=== PATIENT | male | born 2000 | race Caucasian/White ===

== ENCOUNTER 2020-03-22 09:25 | Emergency (ER) | payer BC ==
[2020-03-22] MEDS ORDERED: Cephalexin 500 MG Cap PO ONE (10:04)
--- NOTE | 2020-03-22 10:10 | EDM.PDOC ---
ED HPI GENERAL MEDICAL PROBLEM - General Chief Complaint: Skin Complaint Stated Complaint: CYST ON CHIN Time Seen by Provider: 03/22/20 10:00 Source of Information: Reports: Patient History Limitations: Reports: No Limitations - History of Present Illness INITIAL COMMENTS - FREE TEXT/NARRATIVE: This 19 year old male is admitted to the ED with a chief complaint of a cystic type lesion on his right jaw area for the past two weeks. He states that he has been applying heat to the area for the last 4 days and that it is almost coming to a head. He states that he had a similar one on the left cheek but it drained and healed. He denies any other symptoms. No fever or chills. No ENT complaints. Right Cheek Pain Score (Numeric/FACES): 6 - Related Data Allergies Allergy/AdvReac Type Severity Reaction Status Date / Time No Known Allergies Allergy Verified 03/22/20 09:34 Home Meds: Home Meds Divalproex Sodium [Depakote] 1 tab PO BID 03/22/20 [History] cephALEXin [Keflex] 500 mg PO BID 5 Days #10 capsule 03/22/20 [Rx] Past Medical History - Past Health History Medical/Surgical History: Denies Medical/Surgical History - Infectious Disease History Infectious Disease History: Reports: None - Past Surgical History HEENT Surgical History: Reports: Oral Surgery Social & Family History - Family History Family Medical History: Noncontributory - Tobacco Use Smoking Status *Q: Never Smoker - Recreational Drug Use Recreational Drug Use: No ED ROS GENERAL - Review of Systems Review Of Systems: Comprehensive ROS is negative, except as noted in HPI. ED EXAM, SKIN/RASH Exam: See Below Exam Limited By: No Limitations General Appearance: Alert, WD/WN, No Apparent Distress Ears: Normal External Exam, Normal Canal, Hearing Grossly Normal, Normal TMs Nose: Normal Inspection, Normal Mucosa, No Blood Throat/Mouth: Normal Inspection, Normal Oropharynx, Other (There is a 2.4cm area of induration with a central pimple. The area is somewhat erythemic and slightly warm to the touch.) Head: Atraumatic, Normocephalic Neck: Normal Inspection, Supple, Non-Tender, Full Range of Motion Respiratory/Chest: No Respiratory Distress, Lungs Clear, Normal Breath Sounds Cardiovascular: Normal Peripheral Pulses, Regular Rate, Rhythm, No Murmur GI/Abdominal: Normal Bowel Sounds, Soft, Non-Tender (Male) Exam: Deferred Rectal (Males) Exam: Deferred Back Exam: Normal Inspection Extremities: Normal Inspection, Normal Range of Motion, Normal Capillary Refill Neurological: Alert, Oriented, CN II-XII Intact, Normal Reflexes Psychiatric: Normal Affect, Normal Mood Location, Skin: Other (as noted above. There is a 2.3cm superficial abscess that is not quit ready for lancing at this time.) Lymphatic: No Adenopathy Course - Vital Signs Text/Narrative:: I discussed with the patient his problem. He will be discharged. He agrees with the discharge plan. Last Recorded V/S: Last Vital Signs Temp 97.8 F 03/22/20 09:35 Pulse 74 03/22/20 09:35 Resp 18 03/22/20 09:35 BP 141/75 H 03/22/20 09:35 Pulse Ox 98 03/22/20 09:35 - Orders/Labs/Meds Meds: Medications Discontinued Medications Generic Name Dose Route Start Last Admin Trade Name Freq PRN Reason Stop Dose Admin Cephalexin 500 mg 03/22/20 10:04 Keflex PO 03/22/20 10:05 ONETIME ONE Departure - Departure Time of Disposition: 10:16 Disposition: Home, Self-Care 01 Condition: Good Clinical Impression: Cutaneous abscess of face - Discharge Information *PRESCRIPTION DRUG MONITORING PROGRAM REVIEWED*: Yes *COPY OF PRESCRIPTION DRUG MONITORING REPORT IN PATIENT [place]: Yes Instructions: Skin Abscess, [id number] Referrals: PCP,Not In Area [Primary Care Provider] - Additional Instructions: Take all medications as directed. Warm compresses to the affected area for the next two to three days (30 minutes on and one hour off while awake). Follow up with your PCP in the next two to four days. Rest for the next 24 hours. Return to the ED if your condition gets worse or should you have any questions or concerns. The following information is given to patients seen in the emergency department who are being discharged to home. This information is to outline your options for follow-up care. We provide all patients seen in our emergency department with a follow-up referral. The need for follow-up, as well as the timing and circumstances, are variable depending upon the specifics of your emergency department visit. If you don't have a primary care physician on staff, we will provide you with a referral. We always advise you to contact your personal physician following an emergency department visit to inform them of the circumstance of the visit and for follow-up with them and/or the need for any referrals to a consulting specialist. The emergency department will also refer you to a specialist when appropriate. This referral assures that you have the opportunity for follow-up care with a specialist. All of these measure are taken in an effort to provide you with optimal care, which includes your follow-up. Under all circumstances we always encourage you to contact your private physician who remains a resource for coordinating your care. When calling for follow-up care, please make the office aware that this follow-up is from your recent emergency room visit. If for any reason you are refused follow-up, please contact the [facility] Emergency Department at and asked to speak to the emergency department charge nurse. Sepsis Event Note - Evaluation Sepsis Screening Result: No Definite Risk - Focused Exam Vital Signs: Vital Signs Temp Pulse Resp BP Pulse Ox 03/22/20 09:35 97.8 F 74 18 141/75 H 98 Date Exam was Performed: 03/22/20 Time Exam was Performed: 10:05
== END 2020-03-22 10:33 | disposition home or self-care (01) ==
LOC: MW.ED 09:25
DX: L02.01 Cutaneous abscess of face (principal); Z79.899 Other long term (current) drug therapy
CPT/HCPCS: 99282; A9270